=== PATIENT | male | born 1970 | race Caucasian/White ===

== ENCOUNTER 2018-04-04 15:00 | Inpatient (IN) | payer OTHER ==
[~2018-04-04] VITALS: Ht 167.6 cm; Wt 90.0 kg
[2018-04-04 17:22] LABS: BASOPHIL % 0.1 % (0-2); PLATELET COUNT 142 x10^3mcL (130-400)
[2018-04-04 17:28] LABS: RED CELL DISTRIBUTION WIDTH 15.2 % (11.5-14.5)
[2018-04-04 17:34] LABS: CALCIUM 8.6 mg/dL (8.5-10.1); CARBON DIOXIDE 30.5 mmol/L (21-32); CHLORIDE SERUM 100 mmol/L (98-107); CREATININE SERUM 1.1 mg/dL (0.7-1.3); GFR1 > 60 mL/min; GLUCOSE SERUM 101 mg/dL (74-106); POTASSIUM SERUM 4.4 mmol/L (3.5-5.1); SODIUM SERUM 135 mmol/L (136-145)
[2018-04-04 17:39] LABS: ALKALINE PHOSPHATASE 46 U/L (46-116); ALT/SGPT 45 U/L (16-63); AST/SGOT 30 U/L (15-37); BILIRUBIN TOTAL 0.2 mg/dL (0.20-1.00)
[2018-04-04 17:42] LABS: ALBUMIN 2.8 g/dL (3.4-5.0); TOTAL PROTEIN, SERUM 5.9 g/dL (6.4-8.2)
[2018-04-04] MEDS ORDERED: LEADER MELATONIN5 MG PO (18:15)
[2018-04-04] MEDS ORDERED: DEPAKOTE ER500 MG PO (18:15)
[2018-04-04] MEDS ORDERED: TRAZODONE50 M1 PO (18:15)
[2018-04-04] MEDS ORDERED: OLANZAPINE10 MG PO (18:15)
[2018-04-04] MEDS ORDERED: ATIVAN0.5 M1 PO (18:17)
[2018-04-04] MEDS ORDERED: OXYBUTYNIN5 M1 PO (18:18)
[2018-04-04] MEDS ORDERED: SEROQUEL300 MG PO (18:18)
[2018-04-04] MEDS ORDERED: CITALOPRAM HYDR20 M1 PO (18:19)
[2018-04-04] MEDS ORDERED: DIPHENHYDRAMINE50 MG PO (18:19)
[2018-04-04] MEDS ORDERED: BUPROPION HCL150 M1 PO (18:20)
[2018-04-04] MEDS ORDERED: THO50 PO (18:20)
[2018-04-04 18:23] LABS: T3 TOTAL 0.95 ng/mL
[2018-04-04 18:40] LABS: FREE THYROXINE INDEX 2.1 ug/dL (1.4-4.5); T4(THYROXINE) 6.5 ug/dL (4.7-13.3)
[2018-04-04 19:01] LABS: FREE T4 0.78 ng/dL (0.76-1.46)
[2018-04-04 19:02] VITALS: BP 119/83
[2018-04-04 19:20] LABS: MAGNESIUM 1.3 mg/dL (1.8-2.4); PHOSPHOROUS 3.1 mg/dL (2.5-4.9)
[2018-04-04 19:21] LABS: CHOLESTEROL/HDL RATIO 5.1
[2018-04-04] MEDS ORDERED: FLUPHENAZINE HCL5 MG PO (19:40)
[2018-04-04 20:13] VITALS: BP 110/72
[2018-04-05 06:39] VITALS: BP 100/67
[2018-04-05 07:58] LABS: microscopic required? NO
[2018-04-05 08:54] LABS: UA SPECIFIC GRAVITY 1.015 (1.005-1.035); urine erythrocyte NEGATIVE (NEGATIVE)
[2018-04-05 10:50] VITALS: BP 120/76
[2018-04-05 17:13] VITALS: BP 119/71
[2018-04-05 20:33] VITALS: BP 108/65
[2018-04-06 05:26] VITALS: BP 98/64
[2018-04-06 06:17] LABS: BASOPHIL % 0.1 % (0-2); PLATELET COUNT 133 x10^3mcL (130-400)
[2018-04-06 06:32] LABS: RED CELL DISTRIBUTION WIDTH 15.1 % (11.5-14.5)
[2018-04-06 06:41] LABS: CALCIUM 8.7 mg/dL (8.5-10.1); CARBON DIOXIDE 31.8 mmol/L (21-32); CHLORIDE SERUM 105 mmol/L (98-107); GFR1 > 60 mL/min; GLUCOSE SERUM 104 mg/dL (74-106); MAGNESIUM 1.9 mg/dL (1.8-2.4); PHOSPHOROUS 4.1 mg/dL (2.5-4.9); POTASSIUM SERUM 4.5 mmol/L (3.5-5.1); SODIUM SERUM 137 mmol/L (136-145)
[2018-04-06 09:02] VITALS: BP 116/80
[2018-04-06 16:33] VITALS: BP 116/74
[2018-04-06 19:39] VITALS: BP 132/78
[2018-04-07 05:07] VITALS: BP 128/95
[2018-04-07 07:20] LABS: BASOPHIL % 0.4 % (0-2); PLATELET COUNT 146 x10^3mcL (130-400); RED CELL DISTRIBUTION WIDTH 15.4 % (11.5-14.5)
[2018-04-07 07:29] LABS: CALCIUM 9.1 mg/dL (8.5-10.1); CARBON DIOXIDE 29.3 mmol/L (21-32); CHLORIDE SERUM 105 mmol/L (98-107); GFR1 > 60 mL/min; GLUCOSE SERUM 122 mg/dL (74-106); POTASSIUM SERUM 4.2 mmol/L (3.5-5.1); SODIUM SERUM 141 mmol/L (136-145)
[2018-04-07 08:29] VITALS: BP 112/75
[2018-04-07 17:14] VITALS: BP 99/66
[2018-04-07 20:14] VITALS: BP 127/77
[2018-04-08 06:00] VITALS: BP 125/82
[2018-04-08 06:50] LABS: CALCIUM 9.3 mg/dL (8.5-10.1); CARBON DIOXIDE 30.9 mmol/L (21-32); CHLORIDE SERUM 101 mmol/L (98-107); GFR1 > 60 mL/min; GLUCOSE SERUM 123 mg/dL (74-106); POTASSIUM SERUM 4.1 mmol/L (3.5-5.1); SODIUM SERUM 138 mmol/L (136-145)
[2018-04-08 06:57] LABS: BASOPHIL % 0.4 % (0-2); PLATELET COUNT 160 x10^3mcL (130-400); RED CELL DISTRIBUTION WIDTH 14.5 % (11.5-14.5)
[2018-04-08 08:39] VITALS: BP 102/71
[2018-04-08] MEDS ORDERED: LIPI10 PO (12:46)
[2018-04-08 14:16] VITALS: BP 102/71
== END 2018-04-08 15:24 | DRG 492 ==
LOC: ED 15:00 → MU 17:35
PROVIDERS: Emergency Medicine; Family Medicine; Neuromusculoskeletal Medicine, Sports Medicine
PROC: 0QSG04Z Reposition Right Tibia with Internal Fixation Device, Open Approach (ICD-10-PCS; principal; 2018-04-05 12:00)
DX: S82.851A Displaced trimalleolar fracture of right lower leg, initial encounter for closed fracture (principal); G93.41 Metabolic encephalopathy; D68.69 Other thrombophilia; E44.0 Moderate protein-calorie malnutrition; E11.65 Type 2 diabetes mellitus with hyperglycemia; E83.42 Hypomagnesemia; D64.9 Anemia, unspecified; E78.5 Hyperlipidemia, unspecified; E78.1 Pure hyperglyceridemia; F79 Unspecified intellectual disabilities; W18.39XA Other fall on same level, initial encounter; Y92.018 Other place in single-family (private) house as the place of occurrence of the external cause
CPT/HCPCS: 82962; 84439; 97110-GP; 97116-GP; 97530-GP; C1713; J0690; J1170; J1885; J2060; J2704; J3010; J3490; J7030; J7050; J7120; Q0092; Q0161; Q0163

== ENCOUNTER → 2018-06-18 | Outpatient (CLI) | payer OTHER ==
[~2018-06-18] MED LIST: ATIVAN0.5 M1 PO; BUPROPION HCL150 M1 PO; CITALOPRAM HYDR20 M1 PO; DEPAKOTE ER500 MG PO; DIPHENHYDRAMINE50 MG PO; FLUPHENAZINE HCL5 MG PO; LEADER MELATONIN5 MG PO; LIPI10 PO; OLANZAPINE10 MG PO; OXYBUTYNIN5 M1 PO; SEROQUEL300 MG PO; THO50 PO; TRAZODONE50 M1 PO
== END | disposition home or self-care (01) ==
LOC: RD 12:17
DX: S82.891D Other fracture of right lower leg, subsequent encounter for closed fracture with routine healing (principal); X58.XXXD Exposure to other specified factors, subsequent encounter